=== PATIENT | female | born 1980 | race Caucasian/White ===

== ENCOUNTER 2019-02-03 06:59 | Day surgery (SDC) | payer OTHER ==
[~2019-02-03] VITALS: Ht 165.1 cm; Wt 98.9 kg
[2019-02-03 07:18] VITALS: BP 132/81
[2019-02-03 12:36] VITALS: BP 97/74
== END 2019-02-03 11:30 | disposition home or self-care (01) ==
LOC: DS 06:59 → OR 10:00 → DS 11:30
PROVIDERS: Obstetrics & Gynecology
PROC: 0UDB7ZZ Extraction of Endometrium, Via Natural or Artificial Opening (ICD-10-PCS; 2019-02-03)
PROC: 0UC98ZZ Extirpation of Matter from Uterus, Via Natural or Artificial Opening Endoscopic (ICD-10-PCS; principal; 2019-02-03 10:00)
DX: Z30.432 Encounter for removal of intrauterine contraceptive device (principal); N92.1 Excessive and frequent menstruation with irregular cycle; J45.909 Unspecified asthma, uncomplicated; K21.9 Gastro-esophageal reflux disease without esophagitis; E66.9 Obesity, unspecified; Z68.36 Body mass index [BMI] 36.0-36.9, adult
CPT/HCPCS: J2405; J2704; J3010; J3490; J7120

== ENCOUNTER 2019-02-03 23:12 | Emergency (ER) | payer OTHER ==
[~2019-02-03] VITALS: Ht 165.1 cm; Wt 98.9 kg
[2019-02-03 23:35] VITALS: Ht 165.1 cm; Wt 98.9 kg
[2019-02-04 00:35] VITALS: BP 122/68
== END 2019-02-04 00:35 | disposition home or self-care (01) ==
LOC: ED 23:12
DX: F45.8 Other somatoform disorders (principal); T50.995A Adverse effect of other drugs, medicaments and biological substances, initial encounter; J45.909 Unspecified asthma, uncomplicated; Z88.0 Allergy status to penicillin; Z91.040 Latex allergy status; Y92.89 Other specified places as the place of occurrence of the external cause
CPT/HCPCS: Q0092